=== PATIENT | male | born 1990 | race Caucasian/White ===

== ENCOUNTER 2017-08-15 17:25 | Emergency (ER) | payer BC ==
[~2017-08-15] VITALS: Ht 177.8 cm; Wt 67.5 kg
[~2017-08-15 17:25] MED LIST: [UNRECOGNIZED DRUG - OTHER]
[2017-08-15 17:31] VITALS: TEMP 36.5; Ht 177.8 cm; Wt 67.5 kg
[2017-08-15] MEDS ORDERED: OXYCODONE/ACETAMINOPHEN 5-325 TAB PO STA (17:44)
[2017-08-15] MEDS ORDERED: IBUPROFEN 600 MG TAB PO STA (17:44)
[2017-08-15] MEDS ORDERED: DIPHTHERIA/TETANUS/PERTUSSIS 0.5 ML SYR/VIAL IM. ONE (17:45)
[2017-08-15] MEDS ORDERED: ISOT30CA PO (17:56)
[2017-08-15] MEDS ORDERED: OXYC-57 PO (19:29)
[2017-08-15] MEDS ORDERED: PERCOCET HOME PACK PO STA (19:32)
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
[2017-08-15 19:40] VITALS: BP 117/88; PULSE 66; O2SAT 98
== END 2017-08-15 19:41 | disposition home or self-care (01) ==
LOC: C.EDB 17:25 → C.EDD 19:41
DX: T23.211A Burn of second degree of right thumb (nail), initial encounter (principal); T23.271A Burn of second degree of right wrist, initial encounter; X10.2XXA Contact with fats and cooking oils, initial encounter; Y93.G1 Activity, food preparation and clean up; Y92.000 Kitchen of unspecified non-institutional (private) residence as the place of occurrence of the external cause; Z23 Encounter for immunization

== ENCOUNTER 2017-11-02 14:15 | Emergency (ER) | payer OTHER, BC ==
[~2017-11-02] VITALS: Ht 177.8 cm; Wt 68.0 kg
[~2017-11-02 14:15] MED LIST changes: +ISOT30CA PO; +OXYC-57 PO; -[UNRECOGNIZED DRUG - OTHER]
[2017-11-02 14:23] VITALS: Ht 177.8 cm; Wt 68.0 kg
--- NOTE | 2017-11-02 14:52 | DIAGNOSTIC IMAGING REPORT ---
L HAND MIN 3 VIEWS ROUTINE CLINICAL HISTORY: Left hand pain and swelling. COMPARISON: None. FINDINGS: Alignment of the left hand is anatomic. No fracture or suspicious lesion is present. Joint spaces are preserved. There are no erosions. IMPRESSION: Unremarkable left hand radiographs. Electronically signed by: Trell Peters M.D. 11/02/2017 2:51 PM Dictated Date/Time: 11/02/2017 2:49 PM
[2017-11-02] MEDS ORDERED: ASPI81TA28 PO (15:13)
[2017-11-02] MEDS ORDERED: MULT-513 PO (15:13)
[2017-11-02 15:24] VITALS: BP 123/78; PULSE 60; TEMP 37.1; O2SAT 98
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
== END 2017-11-02 15:24 | disposition home or self-care (01) ==
LOC: C.EDB 14:16 → C.EDD 15:24
DX: S60.222A Contusion of left hand, initial encounter (principal); W22.8XXA Striking against or struck by other objects, initial encounter; R20.0 Anesthesia of skin; F10.99 Alcohol use, unspecified with unspecified alcohol-induced disorder

== ENCOUNTER 2017-11-28 17:31 | Emergency (ER) | payer BC, OTHER ==
[~2017-11-28] VITALS: Ht 177.8 cm; Wt 67.8 kg
[~2017-11-28 17:31] MED LIST changes: +ASPI81TA28 PO; -ISOT30CA PO; +MULT-513 PO; -OXYC-57 PO
[2017-11-28 17:35] VITALS: TEMP 36.8; Ht 177.8 cm; Wt 67.8 kg
[2017-11-28] MEDS ORDERED: LORAZEPAM 1 MG TAB SL STA (18:04)
--- NOTE | 2017-11-28 18:26 | DIAGNOSTIC IMAGING REPORT ---
CHEST ONE VIEW PORTABLE CLINICAL HISTORY: chest pain dyspnea COMPARISON STUDY: None FINDINGS: The bones soft tissues and hemidiaphragms are normal. The cardiomediastinal silhouette is normal. The lungs are clear. The pulmonary vasculature is normal. IMPRESSION: Negative chest. The above report was generated using voice recognition software. It may contain grammatical, syntax or spelling errors. Electronically signed by: Vitor Moyer M.D. 11/28/2017 6:25 PM Dictated Date/Time: 11/28/2017 6:24 PM
[2017-11-28 18:57] LABS: BASO % 0.2 %; BASO ABS # 0.03 K/uL (0-0.2); EOS % 0.2 %; EOS ABS # 0.02 K/uL (0-0.5); HEMATOCRIT 43.5 % (42-52); HEMOGLOBIN 15.3 g/dL (14.0-18.0); IG# 0.04 K/uL (0.00-0.02); LYMPH ABS # 2.61 K/uL (1.2-3.4); MEAN CELL VOLUME 91.6 fL (80-100); MEAN CORPUSCULAR HEMOGLOBIN 32.2 pg (25-34); MEAN CORPUSCULAR HGB CONC 35.2 g/dl (32-36); MEAN PLATELET VOLUME 8.9 fL (7.4-10.4); MONO % 5.4 %; NEUT % 73.9 %; NEUT ABS # 9.68 K/uL (1.4-6.5); PLATELET COUNT 225 K/uL (130-400); RED CELL DISTRIBUTION WIDTH CV 12.9 % (11.5-14.5); RED CELL DISTRIBUTION WIDTH SD 43.2 fL (36.4-46.3); WHITE BLOOD COUNT 13.08 K/uL (4.8-10.8)
[2017-11-28 19:14] LABS: ALBUMIN 5.2 gm/dl (3.4-5.0); CALCIUM 9.5 mg/dl (8.5-10.1); CREATININE 0.96 mg/dl (0.60-1.40); POTASSIUM 3.2 mmol/L (3.5-5.1)
[2017-11-28 19:17] LABS: TOTAL PROTEIN 8.8 gm/dl (6.4-8.2)
--- NOTE | 2017-11-28 19:58 | EMERGENCY ROOM VISIT NOTE ---
History First contact with patient: 17:40 Chief Complaint: CHEST PAIN Stated Complaint: CHEST PAIN Nursing Triage Summary: Tight chest pains radiating to bilateral shoulders, back, and jaw x1 hour and his legs feel shaky. "I am super stressed at work". Denies cardiac history. Denies dyspnea. Hx anxiety, but has never had an anxiety attack that felt like this. Denies long traveling, hx blood clots, or famliy hx blood clots. History of Present Illness The patient is a 27 year old male who presents to the Emergency Room with complaints of chest pain. The patient reports that 1 hour ago, he developed pain in the center of his chest with radiation into his back, shoulders and neck. He states that he was sitting and watching TV when the pain occurred. He does admit to smoking marijuana just prior to the onset of pain. He states the pain has been constant with intermittent palpitations. He denies any history of similar symptoms. He denies associated shortness of breath. He reports a family history of cardiac disease in his grandparents, but nothing at a young age. He has a history of psoriasis but is otherwise healthy. He denies any other illicit drug use. He rates his discomfort a 6/10 and did not take any medication for pain. Review of Systems A complete 10 point review of systems was reviewed with the patient with pertinent positives and negatives as per history of present illness. All else were negative. Past Medical/Surgical History Medical Problems: (1) No significant active problems Surgical Problems: (1) No significant past surgical history Social History Smoking Status: Never Smoker Drug Use: marijuana Occupation Status: [employer] student Current/Historical Medications No Active Prescriptions or Reported Meds Physical Exam Vital Signs Date Time Temp Pulse Resp B/P (MAP) Pulse Ox O2 Delivery O2 Flow Rate FiO2 11/28/17 20:17 88 18 121/71 98 11/28/17 19:35 95 18 116/69 98 11/28/17 17:58 83 11/28/17 17:35 100 Room Air 11/28/17 17:35 36.8 90 18 143/86 100 Room Air Physical Exam VITALS: Vitals are noted on the nurse's note and reviewed by myself. Vital signs stable. GENERAL: This is a 27-year-old male, in no acute distress but anxious appearing , nondiaphoretic, well-developed well-nourished. SKIN: The skin was without rashes. HEAD: Normocephalic atraumatic. EARS: External auditory canals clear, tympanic membranes pearly castillo without erythema or effusion bilaterally. EYES: Pupils equal round and reactive to light and accommodation. MOUTH: Mucous membranes moist. NECK: Supple without nuchal rigidity. No lymphadenopathy. HEART: Regular rate and rhythm without murmurs gallops or rubs. LUNGS: Clear to auscultation bilaterally without wheezes, rales or rhonchi. No retractions or accessory muscle use. NEURO: Patient was alert and oriented to person place and time. Medical Decision & Procedures ER Provider Diagnostic Interpretation: CHEST ONE VIEW PORTABLE CLINICAL HISTORY: chest pain dyspnea COMPARISON STUDY: None FINDINGS: The bones soft tissues and hemidiaphragms are normal. The cardiomediastinal silhouette is normal. The lungs are clear. The pulmonary vasculature is normal. IMPRESSION: Negative chest. Laboratory Results 11/28/17 18:39 Red Blood Count 4.75, Mean Corpuscular Volume 91.6, Mean Corpuscular Hemoglobin 32.2, Mean Corpuscular Hemoglobin Concent 35.2, Mean Platelet Volume 8.9, Neutrophils (%) (Auto) 73.9, Lymphocytes (%) (Auto) 20.0, Monocytes (%) (Auto) 5.4, Eosinophils (%) (Auto) 0.2, Basophils (%) (Auto) 0.2, Neutrophils # (Auto) 9.68, Lymphocytes # (Auto) 2.61, Monocytes # (Auto) 0.70, Eosinophils # (Auto) 0.02, Basophils # (Auto) 0.03 11/28/17 18:39 Test 11/28/17 18:39 11/28/17 18:44 White Blood Count 13.08 K/uL (4.8-10.8) Red Blood Count 4.75 M/uL (4.7-6.1) Hemoglobin 15.3 g/dL (14.0-18.0) Hematocrit 43.5 % (42-52) Mean Corpuscular Volume 91.6 fL (80-100) Mean Corpuscular Hemoglobin 32.2 pg (25-34) Mean Corpuscular Hemoglobin Concent 35.2 g/dl (32-36) Platelet Count 225 K/uL (130-400) Mean Platelet Volume 8.9 fL (7.4-10.4) Neutrophils (%) (Auto) 73.9 % Lymphocytes (%) (Auto) 20.0 % Monocytes (%) (Auto) 5.4 % Eosinophils (%) (Auto) 0.2 % Basophils (%) (Auto) 0.2 % Neutrophils # (Auto) 9.68 K/uL (1.4-6.5) Lymphocytes # (Auto) 2.61 K/uL (1.2-3.4) Monocytes # (Auto) 0.70 K/uL (0.11-0.59) Eosinophils # (Auto) 0.02 K/uL (0-0.5) Basophils # (Auto) 0.03 K/uL (0-0.2) RDW Standard Deviation 43.2 fL (36.4-46.3) RDW Coefficient of Variation 12.9 % (11.5-14.5) Immature Granulocyte % (Auto) 0.3 % Immature Granulocyte # (Auto) 0.04 K/uL (0.00-0.02) Anion Gap 4.0 mmol/L (3-11) Est Creatinine Clear Calc Drug Dose 112.8 ml/min Estimated GFR () 126.8 Estimated GFR (Non- 109.4 BUN/Creatinine Ratio 13.2 (10-20) Calcium Level 9.5 mg/dl (8.5-10.1) Total Bilirubin 0.4 mg/dl (0.2-1) Aspartate Amino Transf (AST/SGOT) 32 U/L (15-37) Alanine Aminotransferase (ALT/SGPT) 36 U/L (12-78) Alkaline Phosphatase 81 U/L (45-117) Total Protein 8.8 gm/dl (6.4-8.2) Albumin 5.2 gm/dl (3.4-5.0) Globulin 3.6 gm/dl (2.5-4.0) Albumin/Globulin Ratio 1.5 (0.9-2) Bedside Troponin I < 0.030 ng/ml (0-0.045) Medications Administered Medications (Trade) Dose Ordered Sig/Hilda Route Start Time Stop Time Status Last Admin Dose Admin Lorazepam (Ativan Tab) 1 mg NOW STAT SL 11/28/17 18:04 11/28/17 18:05 DC 4/22/18 18:29 1 MG ECG Per My Interpretation Indication: chest pain Rate (beats per minute): 91 Findings: no acute ischemic change, no ectopy, other (incomplete RBBB) Change: no significant change Medical Decision No differential diagnosis includes acute coronary syndrome, pulmonary embolism, pneumothorax, pericarditis, myocarditis, endocarditis, anxiety, musculoskeletal pain, GERD, costochondritis, pneumonia, among others. The patient is a 27-year-old male who presents today complaining of chest pain and palpitations. Labs revealed a leukocytosis of 13.08, possibly secondary to stress. There was no concerning anemia or electrolyte abnormalities. Troponin was not elevated. Patient is PERC negative and presentation not suggestive of PE. Patient was treated with Ativan with improvement of symptoms. EKG shows no ischemic findings. Patient symptoms may be secondary to anxiety or musculoskeletal pain. He was advised to follow-up with his PCP this week for a recheck. The patient's case was reviewed with Dr. العلي, ED attending physician, who agreed with my assessment and treatment plan. Based on the patient's presentation and work up, I feel the patient is stable for outpatient treatment. The patient was educated to return to the emergency department for any worsening of their current condition or new/concerning symptoms. He will follow up with his PCP. Medication Reconcilliation Current Medication List: was personally reviewed by me Blood Pressure Screening Patient's blood pressure: Normal blood pressure Impression Primary Impression: Substernal precordial chest pain Departure Information Dispostion Home / Self-Care Condition GOOD Prescriptions No Active Prescriptions or Reported Meds Referrals No Doctor, Assigned (PCP) Patient Instructions My [facility] Additional Instructions You have been treated in the Emergency Department for your Non-Cardiac Chest Pain. Laboratory results and Imaging Studies have ruled out any cardiac or pulmonary cause of your chest pain. For pain control, you can use the following [id number] medicines (if >12 yo): - Regular strength (325mg/tab) Tylenol (acetaminophen) 2 tabs every 4-6 hours as needed. Do not exceed 12 tablets in a 24 hour period. Avoid taking more than 4 grams (4000 mg) of Tylenol per day. This includes any other sources of acetaminophen you may take on a regular basis. - Regular strength (200 mg/tab) Advil (ibuprofen) 1-2 tabs every 4-6 hours as needed. Do not exceed a dose of 3200 mg per day. You should schedule a follow-up appointment with your Primary Care Provider in 2 -3 days for further evaluation from today's Emergency Department visit. Return to the Emergency Department if your current symptoms worsen despite treatment course outlined above, or if you develop any of the following symptoms : worsening chest pain, associated jaw/arm pain, nausea, dizziness, shortness of breath, bloody cough, or fainting.
[2017-11-28 20:17] VITALS: BP 121/71; PULSE 88; O2SAT 98
== END 2017-11-28 20:20 | disposition home or self-care (01) ==
LOC: C.EDB 17:33
DX: R07.2 Precordial pain (principal); R00.2 Palpitations; D72.829 Elevated white blood cell count, unspecified